=== PATIENT | male | born 1940 | race Caucasian/White ===

== ENCOUNTER 2019-01-14 12:03 | Outpatient (CLI) | payer MEDICARE, BC ==
[2019-01-11 14:41] LABS: BASOPHILS # (AUTO) 0.03 x10^3/uL (0-0.1); BASOPHILS % (AUTO) 0 % (0-1); EOSINOPHILS # (AUTO) 0.12 x10^3/uL (0-0.4); EOSINOPHILS % (AUTO) 1 % (1-7); LYMPHOCYTES # (AUTO) 1.16 x10^3/uL (1-3.4); LYMPHOCYTES % (AUTO) 11 % (22-44); MD NO; MEAN CORPUSCULAR HEMOGLOBIN 30.9 pg (27.5-34.5); MEAN CORPUSCULAR HGB CONC 33.5 g/dL (33.2-36.2); MEAN CORPUSCULAR VOLUME 92.4 fL (81-97); MEAN PLATELET VOLUME 9.3 fL (7.4-10.4); MONOCYTES # (AUTO) 0.88 x10^3/uL (0.2-0.8); MONOCYTES % (AUTO) 9 % (2-9); NEUTROPHILS # (AUTO) 8.02 x10^3/uL (1.8-6.8); NEUTROPHILS % (AUTO) 79 % (42-75); PLATELET COUNT 192 x10^3/uL (130-400); RED BLOOD COUNT 4.27 x10^6/uL (4.38-5.82); RED CELL DISTRIBUTION WIDTH 14.4 % (9.4-14.8)
[2019-01-11 14:42] LABS: MICROSCOPIC NOT IND
[2019-01-11 14:49] LABS: ALANINE AMINOTRANSFERASE 31 U/L (12-78); ALBUMIN 3.9 g/dL (3.4-5.0); ANION GAP 6 mmol/L (5-15); CALCIUM 8.7 mg/dL (8.5-10.1); CHLORIDE 106 mmol/L (98-107); CREATININE 1.54 mg/dL (0.7-1.3)
[2019-01-11 14:51] LABS: ALKALINE PHOSPHATASE 136 U/L (45-117); BILIRUBIN,TOTAL 0.7 mg/dL (0.2-1.0); TOTAL PROTEIN 7.3 g/dL (6.4-8.2)
[~2019-01-14] VITALS: Ht 180.3 cm; Wt 90.8 kg
[~2019-01-14 12:03] MED LIST: ALBU1.25 NEB; ALBU2.5V NEB; ALBU6.7H INH; ASPI-496 PO; ATOR40TA78 PO; CHOL100011 PO; CIPR250T27 PO; DESL5TAB6 PO; DIAZ5TAB4 PO; FENO160T PO; FLUT10SP INH; FLUT1DIS5 IH; GLIM2TAB2 PO; GLYB5TAB3 PO; IBUP-1222 PO; IPRA4AER INH; LOSA100T14 PO; METO25TA91 PO; METR60GE TD; MONT10TA9 PO; MULT-658 PO; RANI150T4 PO; SACU1TAB PO; SITA100T PO; SPIR25TA5 PO; TAMS-11 PO; TETR-16 PO; TORS20TA2 PO
[2019-01-14] MEDS ORDERED: LACTATED RINGERS 1,000 ML IV SCH (12:30)
[2019-01-14 12:34] VITALS: BP 131/73
== END 2019-01-14 23:59 | disposition home or self-care (01) ==
LOC: SDC 12:03 → OUT 12:03 → EDSTATUS 14:15 → SDC 23:59
PROVIDERS: ATTEND Urology
DX: N40.0 Benign prostatic hyperplasia without lower urinary tract symptoms (principal); Z53.8 Procedure and treatment not carried out for other reasons; J45.909 Unspecified asthma, uncomplicated; E11.22 Type 2 diabetes mellitus with diabetic chronic kidney disease; I13.0 Hypertensive heart and chronic kidney disease with heart failure and stage 1 through stage 4 chronic kidney disease, or unspecified chronic kidney disease; N18.3 Chronic kidney disease, stage 3 (moderate); I50.9 Heart failure, unspecified; I25.2 Old myocardial infarction; G47.33 Obstructive sleep apnea (adult) (pediatric); E78.5 Hyperlipidemia, unspecified; Z72.89 Other problems related to lifestyle; Z79.84 Long term (current) use of oral hypoglycemic drugs; Z79.1 Long term (current) use of non-steroidal anti-inflammatories (NSAID); Z79.82 Long term (current) use of aspirin; Z79.899 Other long term (current) drug therapy; Z88.1 Allergy status to other antibiotic agents; Z88.0 Allergy status to penicillin; Z88.8 Allergy status to other drugs, medicaments and biological substances; Z87.891 Personal history of nicotine dependence; Z95.810 Presence of automatic (implantable) cardiac defibrillator; Z95.5 Presence of coronary angioplasty implant and graft; Z98.41 Cataract extraction status, right eye; Z96.1 Presence of intraocular lens; Z98.890 Other specified postprocedural states; Z80.49 Family history of malignant neoplasm of other genital organs
CPT/HCPCS: 36415; 71045; 80053; 81003; 82962; 85025; 87086; 93005; J7120

== ENCOUNTER → 2019-01-23 | Outpatient (CLI) | payer MEDICARE, BC | END | disposition home or self-care (01) | LOC: RAD 15:15 | PROVIDERS: ATTEND Family Medicine | DX: J47.9 Bronchiectasis, uncomplicated (principal); J18.9 Pneumonia, unspecified organism; D17.22 Benign lipomatous neoplasm of skin and subcutaneous tissue of left arm; R91.1 Solitary pulmonary nodule | CPT/HCPCS: 71250 ==

== ENCOUNTER 2021-05-31 13:28 | Outpatient (CLI) | payer MEDICARE, BC ==
[~2021-05-31 13:28] MED LIST changes: -ALBU6.7H INH; +ALBU6.7H8 INH; +DESL5TAB40 PO; -DESL5TAB6 PO; -GLIM2TAB2 PO; +GLIM2TAB7 PO; +MONT10TA17 PO; -MONT10TA9 PO
[2021-05-31] MEDS ORDERED: ALLO100T30 PO (14:25)
[2021-05-31] MEDS ORDERED: IRON PO (14:25)
[2021-05-31] MEDS ORDERED: CLINDAMYCIN PHOSP TP (14:25)
[2021-05-31 14:54] LABS: BASOPHILS % (AUTO) 0 % (0-1); EOSINOPHILS % (AUTO) 1 % (1-7); LYMPHOCYTES % (AUTO) 6 % (22-44); MEAN CORPUSCULAR HEMOGLOBIN 32.2 pg (27.5-34.5); MEAN PLATELET VOLUME 8.8 fL (7.4-10.4); MONOCYTES % (AUTO) 9 % (2-9); NEUTROPHILS % (AUTO) 84 % (42-75); PLATELET COUNT 200 x10^3/uL (130-400); RED BLOOD COUNT 3.55 x10^6/uL (4.38-5.82); RED CELL DISTRIBUTION WIDTH 14.5 % (9.4-14.8)
[2021-05-31 15:07] LABS: ANION GAP 9 mmol/L (5-15); CALCIUM 8.4 mg/dL (8.5-10.1); CHLORIDE 102 mmol/L (98-107); CREATININE 1.24 mg/dL (0.7-1.3)
[2021-05-31 15:08] LABS: ALANINE AMINOTRANSFERASE 32 U/L (12-78); ALBUMIN 2.8 g/dL (3.4-5.0)
[2021-05-31 15:10] LABS: ALKALINE PHOSPHATASE 134 U/L (45-117); BILIRUBIN,TOTAL 0.9 mg/dL (0.2-1.0); TOTAL PROTEIN 7.4 g/dL (6.4-8.2)
[2021-05-31 15:22] LABS: MICROSCOPIC INDICATED
[2021-05-31 15:31] LABS: INTERNATIONAL NORMALIZED RATIO 1.03 (0.93-1.1)
== END 2021-05-31 23:59 | disposition home or self-care (01) ==
LOC: STAR 13:28
PROVIDERS: ATTEND Urology
DX: Z01.818 Encounter for other preprocedural examination (principal); C67.9 Malignant neoplasm of bladder, unspecified; I49.3 Ventricular premature depolarization
CPT/HCPCS: 36415; 80053; 81001; 85025; 85610; 85730; 87086; 93005